=== PATIENT | male | born 1955 | race Caucasian/White ===

== ENCOUNTER 2023-05-17 19:44 | Emergency (ER) | payer MEDICARE ==
[2023-05-17] MEDS: Sodium Chloride 0.9% 10 ML Syringe FLUSH PRN (19:56)
[2023-05-17] MEDS: Ketorolac 30 MG/ML SDV IM ONE (20:03)
[2023-05-17] MEDS: Ketorolac 30 MG/ML SDV IVPUSH ONE (20:04)
[2023-05-17] MEDS: Sodium Chloride 0.9% 1,000 ML IV ONE (20:13)
[2023-05-17 20:42] LABS: APPEARANCE,URINE SLIGHTLY CLOUDY (CLEAR); BILIRUBIN,URINE NEGATIVE (NEGATIVE); COLOR,URINE YELLOW (YELLOW); GLUCOSE,URINE NEGATIVE (NEGATIVE); KETONES,URINE NEGATIVE (NEGATIVE); LEUKOCYTE ESTERASE,URINE NEGATIVE (NEGATIVE); NITRITE,URINE NEGATIVE (NEGATIVE); OCCULT BLOOD,URINE MODERATE (NEGATIVE); PH,URINE 5.5 (5.0-9.0); PROTEIN,URINE 30 mg/dL (NEGATIVE); UROBILINOGEN,URINE 0.2 E.U./dL (0.2-1.0)
[2023-05-17 20:43] LABS: BACTERIA,URINE RARE /HPF (NONE TO FEW); EPITHELIAL CELLS,URINE FEW /LPF; MUCUS,URINE FEW /LPF (NEGATIVE); WBC,URINE 0-5 /HPF (0-5)
[2023-05-17] MEDS: Acetaminophen/HYDROcodone 325-5 MG Tab PO ONE (22:20)
[2023-05-17] MEDS: Tamsulosin 0.4 MG Cap.ER PO ONE (22:20)
== END 2023-05-17 22:23 | disposition home or self-care (01) ==
LOC: KA.ED 19:44
DX: N13.2 Hydronephrosis with renal and ureteral calculous obstruction (principal); K40.20 Bilateral inguinal hernia, without obstruction or gangrene, not specified as recurrent; N23 Unspecified renal colic; Z90.49 Acquired absence of other specified parts of digestive tract; Z79.899 Other long term (current) drug therapy; Z88.8 Allergy status to other drugs, medicaments and biological substances
CPT/HCPCS: 74176; 81001; 96372; 96374; 99284; 99284-25; A9270-GY; J1885; J3490; J7030